=== PATIENT | female | born 2000 | race Caucasian/White ===

== ENCOUNTER 2020-07-17 11:46 | Outpatient (CLI) | payer OTHER ==
[2020-07-17 13:58] VITALS: BP 119/87; PULSE 65; RESP 14; TEMP 97.9
--- NOTE | 2020-08-10 08:07 | P.MSEPDOC ---
Presenting Problems - Arrival Data Date of Arrival on Unit: 07/17/20 Time of Arrival on Unit: 11:45 Mode of Transport: Ambulatory - Complaint OB-Reason for Admission/Chief Complaint: Possible Onset of Labor Comment: contractions since yesterday Medical History - Information : 1 Para: 0 Term: 0 : 0 Abortions: Spontaneous or Elective: 0 Number of Living Children: 0 - Gestational Age Gestational Age by MICHAEL (wks/days): 38 Weeks and 5 Days Review of Systems - Review of Systems Constitutional: No problems Breast: No problems ENT: No problems Cardiovascular: No problems Respiratory: No problems Gastrointestinal: No problems Genitourinary: No problems Musculoskeletal: No problems Neurological: No problems Skin: No problems Vital Signs - Temperature Temperature: 97.9 F Temperature Source: Temporal Artery Scan - Pulse Right Pulse Rate: 65 Pulse Assessment Method: Automatic Cuff - Respirations Respiratory Rate: 14 Oxygen Delivery Method: Room Air - Blood Pressure Right Arm Blood Pressure: 119/87 Blood Pressure Mean: 97 Blood Pressure Source: Automatic Cuff Medical Screen Scoring (Pre) - Cervical Exam Dilation: 1-3 cm = 1 Effacement: More than 50% = 2 Membranes: Intact - Uterine Contractions Frequency: > 5 minutes apart = 1 Duration: > 40 seconds = 2 Intensity: N/A - Maternal Vital Signs Maternal Temperature: N/A Maternal Blood Pressure: N/A Signs of Preeclampsia: N/A Maternal Respirations: N/A - Maternal Trauma Maternal Trauma: N/A - Assessment - Baby A Baseline FHR: 145 Heart Rate - NICHD Category: Category I (Normal) = 0 NST: Reactive Position: N/A Station: N/A - Total Score - Baby A Total Score - Baby A: 6 - Total Score - Baby B Total Score - Baby B: 6 - Total Score - Baby C Total Score - Baby C: 6 - Level of Risk - Baby A Level of Risk - Baby A: Medium (6-9) - Level of Risk - Baby B Level of Risk - Baby B: Medium (6-9) - Level of Risk - Baby C Level of Risk - Baby C: Medium (6-9) Physician Notification (Pre) - Physician Notified Physician Notified Date: 07/17/20 Physician Notified Time: 13:37 New Order Received: Yes - Notification Comment Comment: pt may be discharged home. follow up at scheduled appointment tomorrow Disposition - Disposition OB Disposition: Physician follow up in office, Discharge to home Discharge Date: 07/17/20 Discharge Time: 13:37 I agree with the RN Medical Screening Exam: Yes Case reviewed; plan agreed upon as documented in EMR&OBIX.: Yes Comments: Patient was neither seen nor examined by me Diagnosis: FALSE LABOR AT OR AFTER 37 COMPLETED WEEKS OF GESTATION
== END 2020-07-17 13:37 | disposition home or self-care (01) ==
LOC: FBPOP 11:46
PROVIDERS: ATTEND Obstetrics & Gynecology
DX: O47.1 False labor at or after 37 completed weeks of gestation (principal); Z3A.38 38 weeks gestation of pregnancy
CPT/HCPCS: 59025; G0463; 99213

== ENCOUNTER 2020-07-18 09:25 | Inpatient (IN) | payer OTHER ==
[2020-07-18] MEDS ORDERED: METHYLERGONOVINE 0.2 MG/ML 1 ML AMP IM PRN (10:47)
[2020-07-18] MEDS ORDERED: TERBUTALINE 1 MG/ML VIAL SQ PRN (10:47)
[2020-07-18] MEDS ORDERED: OXYTOCIN 10 UNIT/ML 1 ML VIAL IM PRN (10:47)
[2020-07-18] MEDS ORDERED: LIDOCAINE 0.5% (PF) 5 MG/ML (50 ML SDV) SQ PRN (10:47)
[2020-07-18] MEDS ORDERED: CARBOPROST TROMETHAMINE 250 MCG/ML 1 ML AMP IM PRN (10:47)
[2020-07-18] MEDS: OXYTOCIN 30 UNITS/500 ML NS 30 UNIT in SALINE 1 500ML.BAG IV SCH ×2 (11:15→17:41)
[2020-07-18] MEDS: LACTATED RINGERS 1,000 ML IV SCH ×3 (11:15→15:54)
[2020-07-18 11:27] LABS: Basophils % (A) 0 %; Eosinophils # (A) 0.1 k/uL (0-0.7); Eosinophils % (A) 1 %; HCT 37.1 % (34.0-46.0); HGB 12.6 gm/dL (11.4-16.0); Lymphocytes # (A) 1.6 k/uL (1.0-4.8); Lymphocytes % (A) 19 %; MCH 30.4 pg (25.0-35.0); MCV 89.4 fL (80.0-100.0); Mean Platelet Volume 8.3; Monocytes # (A) 0.4 k/uL (0-1.0); Monocytes % (A) 5 %; Neutrophils % (A) 73 %; Platelet Count 151 k/uL (150-450); RBC 4.16 m/uL (3.80-5.40); RDW 13.5 % (11.5-15.5); WBC 8.2 k/uL (4.0-11.0)
[2020-07-18] MEDS ORDERED: ROPIVACAINE 5MG/ML 20ML VIAL ONE (12:14)
[2020-07-18] MEDS ORDERED: SODIUM CHLORIDE 0.9% 100 ML BAG ONE (12:14)
[2020-07-18] MEDS ORDERED: fentaNYL (PF) 50 MCG/ML 5 ML AMP ONE (12:14)
--- NOTE | 2020-07-18 12:46 | P.HPOB ---
History of Present Illness H&P Date: 07/18/20 Chief Complaint: Strong, regular uterine contractions. This is a 19-year-old white female 2 para 0010 EDC 07/26/2020 at 38-6/7 weeks' gestation. Patient presented with strong regular uterine contractions. She denied fluid leakage or vaginal bleeding. Fetus is been active throughout the . Family history is unremarkable. ALLERGIES none known. Current medications vitamins daily, baby aspirin daily levothyroxine 25 MCG's daily. Obstetric history blood type is O+, rubella status immune. VDRL testing, hepatitis B surface antigen, HIV testing, urine culture, group B strep cultures, Pap smear all negative. Social history patient has a history of fainting, denies tobacco alcohol or drug use. She is single, father of the baby is involved. Past medical history is significant for asthma, ALLERGY induced, and hypothyroidism. Past surgical history wisdom teeth extracted. On exam patient is 5 foot 5 inches, 197 pounds, blood pressure 119/79. The general physical exam is within normal limits. Cervix is 4 cm dilated, 70% effaced, -1 station, vertex presentation. heart rate is consistent with reactive NST. Artificial amniorrhexis reveals dark thin meconium-stained fluid. Impression #1 38-6/7 weeks intrauterine , active spontaneous labor. Meconium-stained fluid. Otherwise all signs reassuring. Plan: Continue close maternal and surveillance. Oxytocin augmentation if needed. Analgesic options have been discussed. Anticipate normal spontaneous vaginal delivery. Review of Systems Constitutional: Reports as per HPI Past Medical History Past Medical History: Asthma History of Any Multi-Drug Resistant Organisms: None Reported Additional Past Surgical History / Comment(s): [place] teeth. Past Anesthesia/Blood Transfusion Reactions: No Reported Reaction Past Psychological History: No Psychological Hx Reported Smoking Status: Never smoker Past Alcohol Use History: None Reported Past Drug Use History: None Reported - Past Family History Mother Family Medical History: No Reported History Medications and Allergies Home Medications Medication Instructions Recorded Confirmed Type Albuterol Inhaler (Mhu) [Ventolin 2 puff INHALATION Q4HR PRN 11/01/13 07/18/20 History Inhaler] Budesonide/Formoterol Fumarate 2 puff INHALATION BID 11/01/13 07/18/20 History [Symbicort 80-4.5 Mcg Inhaler] Levothyroxine Sodium [Synthroid] 1 tab PO DAILY 07/17/20 07/18/20 History Pnv,Calcium 72/Iron/Folic Acid 1 tab PO DAILY 07/17/20 07/18/20 History [ Plus Tablet] Venlafaxine HCl [Effexor] 1 tab PO DAILY 07/17/20 07/18/20 History Allergies Allergy/AdvReac Type Severity Reaction Status Date / Time cats Allergy Severe Wheezing Uncoded 07/18/20 09:35 animals - dogs, horses, goats Allergy Intermediate Rash/Hives Uncoded 07/18/20 09:35 Exam Vital Signs Temp Pulse Resp BP Pulse Ox 07/18/20 10:57 96 F L 69 16 119/79 100 07/18/20 10:47 96 F L 69 16 119/79 100 Intake and Output 07/17/20 07/18/20 07/18/20 22:59 06:59 14:59 Other: Weight 88.451 kg See dictation under HPI please Results Result Diagrams: 07/18/20 11:10 Assessment and Plan Assessment: 38-6/7 weeks intrauterine , early spontaneous labor. Meconium-stained fluid. Plan: Close maternal and surveillance. Analgesic options reviewed. Oxytocin augmentation as needed. Anticipate normal spontaneous vaginal delivery. Time with Patient: Less than 30
[2020-07-18] MEDS ORDERED: BENZOCAINE/MENTHOL SPRAY 1 GM/SPRAY AEROSOL TOPICAL PRN (17:09)
[2020-07-18] MEDS ORDERED: ACETAMINOPHEN TAB 325 MG TAB PO PRN (17:09)
[2020-07-18] MEDS ORDERED: diphenhydrAMINE 50 MG CAP PO PRN (17:09)
[2020-07-18] MEDS ORDERED: diphenhydrAMINE 25 MG CAP PO PRN (17:09)
[2020-07-18] MEDS ORDERED: diphenhydrAMINE 50 MG/ML 1 ML VIAL IVP PRN ×2 (17:09)
[2020-07-18] MEDS ORDERED: HYDROCORTISONE 2.5% RECTAL CREAM 30 GM TUBE RECTAL PRN (17:09)
[2020-07-18] MEDS ORDERED: LANOLIN CREAM 5 GM TUBE TOPICAL PRN (17:09)
[2020-07-18] MEDS ORDERED: ZOLPIDEM 5 MG TAB PO PRN (17:09)
[2020-07-18] MEDS ORDERED: SIMETHICONE 80 MG CHEWABLE PO PRN (17:09)
--- NOTE | 2020-07-18 17:09 | P.PROBDLV ---
Vaginal Delivery Note - . Vaginal Delivery Note: This is a 19-year-old white female 2 para 0010 EDC 07/26/2020 at 38-6/7 weeks' gestation. Patient presents today in active spontaneous labor from home. Fetus is been active throughout the . Blood type O+, group B strep cultures negative, rubella status immune. Please see dictated history and physical for details. Artificial amniorrhexis revealed thin meconium-stained fluid. Oxytocin was started and titrated per hospital protocol. Epidural was placed per her request with excellent results. Patient progressed well through the first stage of labor, became completely dilated at 1637 hrs. She began the second stage of labor at that time. heart rate was reassuring throughout first and second stages of labor. With excellent maternal expulsive efforts infant's quickly crowned. Perineal body was prepped and draped in usual sterile fashion. Patient delivered the head occiput anterior and baby restituted accordingly. There was no nuchal cord noted. The right or anterior shoulder delivered from underneath the pubic symphysis at which time the oropharynx, nasopharynx, and external nares were all bulb suctioned on the perineal body. Patient was officially delivered of a liveborn female infant at 1648 hrs. Umbilical cord was doubly clamped and ligated, she was handed to waiting nurses for evaluation where scores of 9 and 9 at one and 5 minutes respectively were given. Placenta delivered spontaneously, it was inspected and noted to be intact with trivascular cord. Careful inspection of the cervix, vagina, perineum, periurethral, and perirectal areas revealed first-degree lacerations in the inner aspect of bilateral labia minora. These were repaired in usual fashion in a running stitch of 3-0 rapid he suture. Fundus is firm and in the midline, symmetric and 18 week size. Total estimated blood loss 300 mL's. Infant weighed 3700 g or 8 lbs. 2 oz. Patient and her family are allowed to begin the bonding experience in the LDR.
[2020-07-18] MEDS: SENNOSIDES-DOCUSATE SODIUM 1 EACH TAB PO SCH (21:15)
[2020-07-19] MEDS: IBUPROFEN 600 MG TAB PO PRN ×3 (04:42→19:25)
[2020-07-19 07:19] LABS: Basophils % (A) 0 %; Eosinophils # (A) 0.2 k/uL (0-0.7); Eosinophils % (A) 2 %; HCT 30.1 % (34.0-46.0); HGB 10.5 gm/dL (11.4-16.0); Lymphocytes # (A) 2.1 k/uL (1.0-4.8); Lymphocytes % (A) 22 %; MCH 31.4 pg (25.0-35.0); MCHC 34.9 g/dL (31.0-37.0); Mean Platelet Volume 8.8; Monocytes # (A) 0.6 k/uL (0-1.0); Monocytes % (A) 6 %; Neutrophils # (A) 6.4 k/uL (1.3-7.7); Neutrophils % (A) 68 %; Platelet Count 124 k/uL (150-450); RBC 3.35 m/uL (3.80-5.40); RDW 13.5 % (11.5-15.5); WBC 9.4 k/uL (4.0-11.0)
--- NOTE | 2020-07-19 07:29 | P.PN ---
Subjective Progress Note Date: 07/19/20 Principal diagnosis: day #1 Slept well. Minimal pain. Normal lochia rubra. No complaints Objective - Vital Signs Vital signs: Vital Signs Temp 98.4 F 07/19/20 04:30 Pulse 71 07/19/20 04:30 Resp 16 07/19/20 04:30 BP 100/64 07/19/20 04:30 Pulse Ox 98 07/18/20 21:00 Intake & Output 07/18/20 07/19/20 07/19/20 18:59 06:59 18:59 Intake Total 6.433 Output Total 300 Balance 6.433 -300 Weight 88.451 kg Intake: Intake, IV Titration 6.433 Amount Oxytocin 30 Units/500 ml 6.433 Ns 30 unit In Saline 1 500ml.bag @ Per Protocol IV .Q0M KIM Rx#:[id number] Output: Estimated Blood Loss 300 Other: # Voids 1 1 - Constitutional General appearance: Present: average body habitus, cooperative - EENT Eyes: Present: PERRLA ENT: Present: hearing grossly normal - Respiratory Respiratory: bilateral: CTA - Cardiovascular Rhythm: regular - Gastrointestinal General gastrointestinal: Present: normal bowel sounds - Integumentary Integumentary: Present: normal - Neurologic Neurologic: Present: CNII-XII intact - Musculoskeletal Musculoskeletal: Present: gait normal, strength equal bilaterally - Psychiatric Psychiatric: Present: A&O x's 3, appropriate affect, intact judgment & insight - Labs CBC & Chem 7: 07/19/20 07:02 Labs: Abnormal Lab Results - Last 24 Hours (Table) 07/19/20 Range/Units 07:02 RBC 3.35 L (3.80-5.40) m/uL Hgb 10.5 L (11.4-16.0) gm/dL Hct 30.1 L (34.0-46.0) % Plt Count 124 L (150-450) k/uL Assessment and Plan Assessment: Doing well day #1 Plan: Likely discharge home tomorrow, as is in the nursery. Continue routine care. Time with Patient: Less than 30
[2020-07-19] MEDS: SENNOSIDES-DOCUSATE SODIUM 1 EACH TAB PO SCH ×2 (11:15→19:25)
[2020-07-19] MEDS ORDERED: LEVOTHYROXINE 25 MCG TAB PO SCH (21:00)
[2020-07-20] MEDS: IBUPROFEN 600 MG TAB PO PRN (07:39)
[2020-07-20] MEDS: SENNOSIDES-DOCUSATE SODIUM 1 EACH TAB PO SCH (07:40)
[2020-07-20 07:55] VITALS: BP 108/67; PULSE 75; RESP 16; TEMP 98
--- NOTE | 2020-07-20 08:19 | DS ---
DISCHARGE SUMMARY DATE OF ADMISSION: 07/18/2020. ADMITTING DIAGNOSIS: A 38 and 6/7 weeks intrauterine , active spontaneous labor. DATE OF DISCHARGE: 07/20/2020. DISCHARGE DIAGNOSIS: Status post live-born female vaginal delivery. This is a 19-year-old white female, 2, para 0-0-1-0, EDC 07/26/2020, at 38 and 6/7 weeks gestation, who presented from home in spontaneous active labor. is remarkable for asthma, hypothyroidism, anxiety, blood type O positive, rubella status immune, group B strep culture is negative. Please see dictated history and physical for details. Artificial amniorrhexis revealed thin meconium-stained fluid. Epidural was placed per her request. She went on to deliver a live-born female infant with scores of 9 and 9 at 1 and 5 minutes respectively. weighed 3700 grams or 8 pounds 2 ounces. There was an estimated blood loss recorded of 300 mL. Please see dictated delivery note for details. This morning, the patient is doing well. She is voiding, ambulating, passing flatus without difficulty. Vital signs are stable and she is afebrile. Fundus is firm and in the midline, symmetric and 18 week size. Extremities are negative for edema. Chest is clear in all andujar. The patient is judged to be in very good condition for discharge home. She will follow with me in the office in 6 weeks. I have reminded her no intercourse, tampons, or douching. She will use extra-strength Tylenol or [id number] ibuprofen products as needed for pain. She will call with any fever shakes or chills, foul smelling or copious lochia, with the passage of large blood clots, with any pain not alleviated by [id number] products, or indeed with any concerns. will follow up with medication administration professional as per recommendations. MMODL / IJN: [id number] /
== END 2020-07-20 14:00 | disposition home or self-care (01) | DRG 807 ==
LOC: FBPOP 09:25 → 4FBP 10:47
PROVIDERS: ADMIT Obstetrics & Gynecology; ATTEND Obstetrics & Gynecology
PROC: 10E0XZZ Delivery of Products of Conception, External Approach (ICD-10-PCS; principal; 2020-07-18)
PROC: 00HU33Z Insertion of Infusion Device into Spinal Canal, Percutaneous Approach (ICD-10-PCS; principal; 2020-07-18)
PROC: 10907ZC Drainage of Amniotic Fluid, Therapeutic from Products of Conception, Via Natural or Artificial Opening (ICD-10-PCS; principal; 2020-07-18)
PROC: 0HQ9XZZ Repair Perineum Skin, External Approach (ICD-10-PCS; principal; 2020-07-18)
PROC: 3E0R3NZ Introduction of Analgesics, Hypnotics, Sedatives into Spinal Canal, Percutaneous Approach (ICD-10-PCS; principal; 2020-07-18)
DX: O99.52 Diseases of the respiratory system complicating childbirth (principal); Z37.0 Single live birth; O99.284 Endocrine, nutritional and metabolic diseases complicating childbirth; O77.0 Labor and delivery complicated by meconium in amniotic fluid; O70.0 First degree perineal laceration during delivery; J45.909 Unspecified asthma, uncomplicated; E03.9 Hypothyroidism, unspecified; Z3A.38 38 weeks gestation of pregnancy; Z79.51 Long term (current) use of inhaled steroids; Z79.82 Long term (current) use of aspirin
CPT/HCPCS: 59025; 85025; 86850; 86900; 86901; 99213

== ENCOUNTER 2024-01-08 06:30 | Day surgery (SDC) | payer OTHER ==
[2024-01-07 09:30] VITALS: BMI 21.6
[~2024-01-08 06:30] MED LIST: SODIUM CHLORIDE 0.9% 1,000 ML IV SCH
[2024-01-08] MEDS: SODIUM CHLORIDE 0.9% 500 ML 500 ML IV ONE (06:49)
[2024-01-08 06:59] VITALS: BP 116/55; PULSE 56; RESP 16; TEMP 98.1
--- NOTE | 2024-01-08 11:08 | P.EPPROC ---
- EP Procedure Note Electrophysiology Procedure Note: Diagnosis Recurrent syncope Twelve-lead EKG shows sinus rhythm normal HI narrow QRS normal ST segments normal QT interval Tilt table test per protocol Baseline blood pressure 105/70 mmHg, baseline heart rate 59 beats a minute Patient was tilted upright in angle of 70 degrees per protocol No significant change in heart rate or blood pressure She felt tired fatigued blurred vision little dizzy but without any hemodynamic changes during the tilt table test She was laid supine the end of the procedure Impression multiple symptoms including dizziness blurred vision tiredness fatigue Normal heart rate and blood pressure response to upright tilt Normal twelve-lead EKG
== END 2024-01-08 08:28 | disposition home or self-care (01) ==
LOC: CATHEP 06:30
PROVIDERS: ATTEND Internal Medicine Clinical Cardiac Electrophysiology
DX: R55 Syncope and collapse (principal); E03.9 Hypothyroidism, unspecified; F17.200 Nicotine dependence, unspecified, uncomplicated; Z79.890 Hormone replacement therapy
CPT/HCPCS: 81025; 93660

== ENCOUNTER 2024-12-30 06:08 | Day surgery (SDC) | payer OTHER ==
[2024-12-28 14:45] VITALS: BMI 22.8
[2024-12-30 06:35] VITALS: RESP 16; TEMP 98.4
[2024-12-30] MEDS: IV FLUID CONTINUATION 1,000 ML IV ONE (09:20)
[2024-12-30] MEDS: BENZOCAINE SPRAY 1 EACH MM ONE ×2 (09:32→09:38)
[2024-12-30] MEDS: MIDAZOLAM 2 MG/2 ML VIAL IVP ONE ×2 (09:46→09:52)
[2024-12-30] MEDS: fentaNYL (PF) 50 MCG/1 ML VIAL IVP ONE (09:47)
--- NOTE | 2024-12-30 10:03 | P.PCN ---
Date of Procedure: 12/30/24 Operative Findings: TRANSESOPHAGEAL ECHOCARDIOGRAM PATROL DRIVER: GWENDOLYN KIRAN MD, RPVI INDICATION: Rule out PFO/ASD SEDATION: Conscious sedation COMPLICATION: None LEVEL OF SEDATION Moderate with sedation length of 8 minutes PROCEDURE DESCRIPTION: After obtaining an informed consent, the patient was brought to transesophageal echocardiogram room. Pulse oximetry and heart monitors were attached to the patient. The patient throat was sprayed using lidocaine. The patient was turned into left lateral position. After that a bite guard was placed. After an appropriate conscious sedation was initiated, the transesophageal echocardiogram was advanced through a bite guard into the mid esophagus. A 2-D echocardiogram images, color Doppler images, continuous wave images, pulse-wave images, of various cardiac structure were performed. After that the transesophageal echocardiogram probe was advanced into the stomach and fixed to obtain transgastric view was. The probe was brought into the mid esophagus. Inter-atrial septum was interrogated using 2D images, color Doppler images, and then contrast study. After that transesophageal echocardiogram was withdrawn out and upon withdrawing the descending thoracic aorta all the way up to the arch was evaluated. CONCLUSION: 1. Intact interatrial septum with no PFO or ASD 2. Normal biventricular systolic function 3. Normal intracardiac valves 4. No pericardial effusion 5. Intact left atrial appendage
[2024-12-30 11:31] VITALS: BP 106/73; PULSE 58
== END 2024-12-30 11:01 | disposition home or self-care (01) ==
LOC: CATHCVL 06:08
PROVIDERS: ATTEND Internal Medicine Interventional Cardiology
DX: R42 Dizziness and giddiness (principal); D50.9 Iron deficiency anemia, unspecified; E03.9 Hypothyroidism, unspecified; F17.200 Nicotine dependence, unspecified, uncomplicated; Z79.890 Hormone replacement therapy; Z79.899 Other long term (current) drug therapy
CPT/HCPCS: 93312; 93320; 93325; 81025; J2250; J3010